=== PATIENT | female | born 1975 | race African-American/Black ===

== ENCOUNTER 2020-06-13 13:59 | Emergency (ER) | payer OTHER ==
[~2020-06-13] VITALS: Ht 160 cm; Wt 63.5 kg
[2020-06-13 15:43] VITALS: BP 114/82
== END 2020-06-13 15:44 | disposition home or self-care (01) ==
LOC: ER 13:59
DX: Z20.2 Contact with and (suspected) exposure to infections with a predominantly sexual mode of transmission (principal)